=== PATIENT | female | born 1960 | race Two or more races ===

== ENCOUNTER 2016-10-10 00:59 | Emergency (ER) | payer OTHER ==
[2016-10-10 01:05] VITALS: BP 172/84; PULSE 97; RESP 18; TEMP 98.2; O2SAT 95
--- NOTE | 2016-10-10 01:10 | EDPHY ---
H & P Stated Complaint: Sore throat, productive cough x3 days HPI/ROS: HPI CHIEF COMPLAINT: Sore throat, cough HISTORY OF PRESENT ILLNESS: This patient very pleasant 55-year-old female significant past medical history for hypertension, breast CA status post bilateral mastectomy and reconstruction, presents to the emergency room at 1:15 a.m. in the morning with 3-4 days of progressively worsening sore throat and cough. Chills at home. Subjective fever. Denies chest pain, shortness of breath, pleuritic pain, hemoptysis, abdominal pain or back pain. Her main complaint is sore throat and cough with sputum production that she describes is whitish yellow. Past Medical History:Hypertension, breast CA Past Surgical History: Bilateral mastectomy, reconstruction Social History: denies daily use of drugs alcohol tobacco products works here at the hospital [employer] Family History: Noncontributory ROS REVIEW OF SYSTEMS: A comprehensive 10 point review of systems is otherwise negative aside from elements mentioned in the history of present illness. Exam Constitutional appears well nontoxic triage nursing summary reviewed, vital signs reviewed, awake/alert. Eyes normal conjunctivae and sclera, EOMI, PERRLA. HENT posterior pharynx erythematous, uvula midline, tonsillar bed mildly swollen 2+, no signs of MILLWORK ESTIMATOR RPA, no signs of Dillan's, normal inspection, atraumatic, moist mucus membranes, no epistaxis, neck supple/ no meningismus, no raccoon eyes. Respiratory bronchitic sounding cough, clear to auscultation bilaterally, normal breath sounds, no respiratory distress, no wheezing. Cardiovascular rate normal, regular rhythm, no murmur, no edema, distal pulses normal. Gastrointestinal soft, non-tender, no rebound, no guarding, normal bowel sounds, no distension, no pulsatile mass. Genitourinary no CVA tenderness. Musculoskeletal no midline vertebral tenderness, full range of motion, no calf swelling, no tenderness of extremities, no meningismus, good pulses, neurovascularly intact. Skin pink, warm, & dry, no rash, skin atraumatic. Neurologic awake, alert and oriented x 3, AAOx3, moves all 4 extremities equally, motor intact, sensory intact, CN II-XII intact, normal cerebellar, normal vision, normal speech. Psychiatric normal mood/affect. Heme/Lymph/Immune no lymphadenopathy. Differential Diagnosis: includes but is not limited to in a particular order, upper respiratory tract infection, bronchitis, viral syndrome, strep pharyngitis , pharyngitis viral, viral pneumonia, bacterial pneumonia Medical Decision Making: Plan for this patient rapid strep. However I will place her on azithromycin, guaifenesin, ibuprofen, albuterol, prednisone as she does have a bronchitic sounding cough. Re-evaluation: Patient appears well nontoxic. Start 1st dose of azithromycin here albuterol and prednisone. She understands return emergency room if she has any worsening symptoms questions or concerns. Vital signs reviewed. She does work here. She is agree with discharge planning. Source: Patient - Personal History Current Tetanus/Diphtheria Vaccine: Yes Current Tetanus Diphtheria and Acellular Pertussis (TDAP): Yes Tetanus Vaccine Date: 2012 - Medical/Surgical History Hx Asthma: No Hx Chronic Respiratory Disease: No Hx Diabetes: No Hx Cardiac Disease: No Hx Renal Disease: No Hx Cirrhosis: No Hx Alcoholism: No Hx HIV/AIDS: No Hx Splenectomy or Spleen Trauma: No Other PMH: HTN, hx breast cancer, bilat mastectomy with bilat implants. - Social History Smoking Status: Never smoked Constitutional: Initial Vital Signs Temperature (C) 36.8 C 10/10/16 01:02 Heart Rate 97 10/10/16 01:02 Respiratory Rate 18 10/10/16 01:02 Blood Pressure 172/84 H 10/10/16 01:02 O2 Sat (%) 95 10/10/16 01:02 O2 Delivery Mode Room Air Allergies/Adverse Reactions: Penicillins Allergy (Verified 11/11/14 09:51) Home Medications: Medication Instructions Recorded Hydrochlorothiazide [HCTZ (*)] 25 mg PO DAILY 01/06/12 Benazepril HCl [Lotensin (*)] 10 mg PO DAILY 11/11/14 Tamoxifen Citrate [Nolvadex 10 MG 20 mg PO DAILY 11/11/14 (*)] Zolpidem Tartrate [Ambien 5MG (*)] 5 mg PO HS PRN 11/11/14 Ibuprofen [Motrin (*)] 400 mg PO Q8 PRN #0 tab 11/12/14 Clindamycin 300 mg PO Q8 #60 cap 11/28/15 AZITHROMYCIN [Z-PACK] 250 mg PO DAILY #6 tab 10/10/16 Guaifenesin [Guaifenesin ER] 600 mg PO BID #14 tab.er.12h 10/10/16 predniSONE 60 mg PO DAILY #15 tab 10/10/16 Medical Decision Making - Data Points Laboratory Results: 10/10/16 01:10 Group A Strep Screen Pending Departure - Departure Disposition: Home, Routine, Self-Care Clinical Impression: Viral syndrome Upper respiratory infection Qualifiers: URI type: unspecified viral URI Qualified Code(s): J06.9 - Acute upper respiratory infection, unspecified; B97.89 - Other viral agents as the cause of diseases classified elsewhere Condition: Good Instructions: Viral Syndrome (ED), Acute Bronchitis (ED) [facility]errals: [facility] [Other] - As per Instructions Prescriptions: AZITHROMYCIN [Z-PACK] 250 mg PO DAILY #6 tab Guaifenesin [Guaifenesin ER] 600 mg PO BID #14 tab.er.12h predniSONE 60 mg PO DAILY #15 tab
[2016-10-10] MEDS ORDERED: ALBUTEROL INH PREPACK MDI TAKEHOME ONE (01:23)
[2016-10-10] MEDS ORDERED: AZITHROMYCIN 250 MG TAB PO ONE (01:23)
[2016-10-10] MEDS ORDERED: predniSONE 20 MG TAB PO ONE (01:23)
== END 2016-10-10 01:36 | disposition home or self-care (01) ==
DX: J06.9 Acute upper respiratory infection, unspecified (principal); B34.9 Viral infection, unspecified; I10 Essential (primary) hypertension; Z85.3 Personal history of malignant neoplasm of breast

== ENCOUNTER 2016-11-11 10:10 | Emergency (ER) | payer OTHER ==
--- NOTE | 2016-11-11 12:15 | EDPHY ---
H & P Time Seen by Provider: 11/11/16 10:20 HPI/ROS: HPI: 55-year-old female presents to emergency department with chief concern chemical splashed in her eyes. Occurred just prior to arrival when she was working at the [employer] at [employer] [facility] [employer], and splashed Virex II 256 venetian blind cleaner in her eyes that contains Didectyl ammonium chloride, and n-alkyl dimethyl benzyl ammonium chloride. Reports burning in her eyes. She rinsed at the eye wash station times 15 minutes prior to arrival. Denies fever, dizziness , visual changes, discharge from her eyes, headache, nausea vomiting. Does not wear contacts. ROS:10 point review of systems is negative other than as stated in HPI Smoking Status: Never smoked Physical Exam: General: Awake, alert, calm, cooperative. No acute distress. Head: Normalocephalic. Atraumatic. EENT: PERRLA. EOMI. Bilateral conjunctival injection, worse on the left. Pupils:[equal round and reactive to light] [EOMI] Lids: [no edema or swelling] Skin: [no proptosis, no periorbital erythema, rash or swelling, no vesicles] Conjunctivae: [conjunctival injection, worse on the left. No discharge.] Cornea: [exam with slit lamp and fluorescein shows no uptake, no abrasions, no ulcers.] Anterior chamber:[normal, no hyphema or hypopyon] Neck: Supple, nontender. No lymphadenopathy. Full range of motion. Neuro: Alert. Oriented x 3. Speech clear. Skin: Skin warm, dry, intact. No rashes. Skin turgor normal. Extremities: Full range of motion in all 4 extremities. Mental status: Interactive, appropriate, well-groomed. Constitutional: Initial Vital Signs Temperature (C) 36.6 C 11/11/16 10:14 Heart Rate 82 11/11/16 10:14 Respiratory Rate 17 11/11/16 10:14 Blood Pressure 160/79 H 11/11/16 10:14 O2 Sat (%) 95 11/11/16 10:14 O2 Delivery Mode Room Air Allergies/Adverse Reactions: Penicillins Allergy (Verified 11/11/16 10:12) Home Medications: Medication Instructions Recorded Hydrochlorothiazide [HCTZ (*)] 25 mg PO DAILY 01/06/12 Benazepril HCl [Lotensin (*)] 10 mg PO DAILY 11/11/14 Tamoxifen Citrate [Nolvadex 10 MG 20 mg PO DAILY 11/11/14 (*)] Zolpidem Tartrate [Ambien 5MG (*)] 5 mg PO HS PRN 11/11/14 Ibuprofen [Motrin (*)] 400 mg PO Q8 PRN #0 tab 11/12/14 Guaifenesin [Guaifenesin ER] 600 mg PO BID #14 tab.er.12h 10/10/16 predniSONE 60 mg PO DAILY #15 tab 10/10/16 Tobramycin/Dexameth [Tobradex opht 2 drops EACHEYE Q6 #1 opht.btl 11/11/16 drops (*)] Medical Decision Making ED Course/Re-evaluation: 55-year-old female presents to ED with chemical splash to the size at work today at [employer]. Rinsed her eyes for 15 minutes at eye wash station prior to arrival to ED. Upon arrival to ED, pH of her eyes bilaterally 8. Eyes rinsed for another 15 minutes at eye wash station. PH bilateral eyes remained 8 so eyes rinsed for another 15 minutes at eye wash station. Afterwards, pH of the left eye 7.5, pH of the right eye 7.0. Slit lamp exam negative for uptake or evidence of abrasion or ulcer. Consulted Dr. Nelson of Ophthalmology. Patient started on TobraDex steroid drops 4 times a day, and will follow up in the office with Ophthalmology tomorrow. Has been counseled to return promptly to ED for worsening symptoms including visual changes or discomfort. Differential Diagnosis: Differential diagnosis includes but is not limited to chemical burn, abrasion, ulceration Departure - Departure Disposition: Home, Routine, Self-Care Clinical Impression: Chemical injury of eye Qualifiers: Encounter type: initial encounter Laterality: unspecified laterality Qualified Code(s): T26.40XA - Burn of unspecified eye and adnexa, part unspecified, initial encounter Condition: Good Instructions: Chemical Eye Riley (ED) Additional Instructions: Plan: Plan: TobraDex eyedrops 2 drops each eye 4 times daily TobraDex gotas para los ojos, poner 2 gotas en cada denny 4 veces por khai. Follow up with Dr. Red Nelson of Ophthalmology tomorrow for recheck without fail--When you call to schedule appointment, please let the office know you are an "ER follow up" appointment" Staci de seguimiento con el Dr. Red Nelson de opthamologia manana para otro chequeo sin falta. Cuando llames a programar la staci, dejarles saber que tu eres un paciente que necesita staci despues de taina sido paciente en la rafael de Emergencia. Referrals: [facility] [Other] - As per Instructions Red Nelson MD [Medical Doctor] - As per Instructions Stand Alone Forms: Work Excuse Prescriptions: Tobramycin/Dexameth [Tobradex opht drops (*)] 2 drops EACHEYE Q6 #1 opht.btl
[2016-11-11 12:20] VITALS: BP 117/76; PULSE 81; RESP 15; TEMP 98.2; O2SAT 96
== END 2016-11-11 12:42 | disposition home or self-care (01) ==
DX: T54.3X1A Toxic effect of corrosive alkalis and alkali-like substances, accidental (unintentional), initial encounter (principal); T26.92XA Corrosion of left eye and adnexa, part unspecified, initial encounter; X58.XXXA Exposure to other specified factors, initial encounter

== ENCOUNTER 2017-08-08 01:27 | Emergency (ER) | payer OTHER ==
[2017-08-08 01:42] VITALS: RESP 16
[2017-08-08] MEDS ORDERED: CLINDAMYCIN 150MG PREPACK#6 BTL TAKEHOME ONE (01:49)
[2017-08-08] MEDS ORDERED: HYDROCOD/APAP 5/325 PREPACK#6 BTL TAKEHOME ONE (01:52)
--- NOTE | 2017-08-08 01:52 | EDPHY ---
H & P Time Seen by Provider: 08/08/17 01:33 HPI/ROS: CC: tooth pain HPI: This 56-year-old female presents emergency department today with pain in her right lower molar for the last 3 days. She has had dental problems in the past. She knew that this tooth needed dental attention but she just has not had the time. She does have a dentist in [place]. She rates the pain at a 4 /10 and throbbing. No relief with ibuprofen. She denies swelling, difficulty swallowing or breathing. She has not had a fever. She has a past medical history of breast cancer and hypertension. She states she has not taken her blood pressure medication for the last 3 days because she does not think she needs to take it all the time. No other concerns this evening. REVIEW OF SYSTEMS: Constitutional: No fever, no chills. Eyes: No discharge. ENT: No sore throat. Respiratory: No cough, no shortness of breath. Cardiac: No chest pain, no palpitations. Gastrointestinal: No abdominal pain, no vomiting. Genitourinary: No hematuria. Musculoskeletal: No back pain. Skin: No rashes. Neurological: No headache. Past Medical/Surgical History: Past medical history includes breast cancer, hypertension, and dental caries Past surgical history includes bilateral mastectomy and hysterectomy Family history significant for mother having breast cancer Allergies include penicillin which causes a rash and itching Medications include ibuprofen. She has not taken her losartan for 3 days. Social History: The patient denies tobacco use, alcohol use or marijuana use. Her primary care provider is [facility]. Her dentist is [facility] in [place]. Smoking Status: Never smoked Physical Exam: General Appearance: Alert, mod distress. Eyes: Pupils equal and round no pallor or injection. ENT, Mouth: Mucous membranes are moist. The right lower molar is fractured but this does not appear acute. Mild gingival erythema. No significant swelling around the tooth. no fluctuance. Uvula midline. Respiratory: There are no retractions, lungs are clear to auscultation. Cardiovascular: Regular rate and rhythm. Gastrointestinal: Abdomen is soft and nontender, no masses, bowel sounds normal. Neurological: Awake and alert, sensory and motor exams grossly normal. Skin: Warm and dry, no rashes. Musculoskeletal: Neck is supple nontender. Extremities are symmetrical, full range of motion. Psychiatric: Patient is oriented X 3, there is no agitation. DIFFERENTIAL DIAGNOSIS: After history and physical exam differential diagnosis was considered for but not limited to: [Dental caries, dental infection, fractured tooth, no signs of Dillan's angina] Constitutional: Initial Vital Signs Temperature (C) 97.7 F 08/08/17 01:39 Heart Rate 83 08/08/17 01:39 Respiratory Rate 16 08/08/17 01:39 Blood Pressure 208/85 H 08/08/17 01:39 O2 Sat (%) 98 08/08/17 01:39 O2 Delivery Mode Room Air Allergies/Adverse Reactions: Penicillins Allergy (Verified 08/08/17 01:37) Home Medications: Medication Instructions Recorded Clindamycin 150 mg PO QID 7 Days #28 cap 08/08/17 Medical Decision Making ED Course/Re-evaluation: Patient was seen and examined. Vital signs reviewed. Her blood pressure was elevated but this did come down prior to discharge. She was advised to take her blood pressure medication when she got home tonight and continue to take it daily as directed. She was given clindamycin 150 mg p.o.. An inferior alveolar dental block was performed using 3 cc of 1% lidocaine with epinephrine. Patient tolerated this well. She was given a take-home pack of clindamycin and hydrocodone. She was given a prescription for 7 day course of clindamycin 150 mg p.o. four times daily. She will follow up with her dentist in the next 1-2 days and will return to the emergency room if symptoms change or worsen as discussed specifically if she has facial swelling or swelling under her tongue, or difficulty swallowing or breathing. - Data Points Medications Given: Discontinued Medications Hydrocodone Bitart/Acetaminophen ([place] 5/325mg Prepack#6) 1 btl TAKEHOME EDNOW ONE Stop: 08/08/17 01:53 Last Admin: 08/08/17 02:02 Dose: 1 btl Clindamycin (Cleocin 150 Mg Prepack#6) 1 btl TAKEHOME EDNOW ONE PRN Reason: Protocol Stop: 08/08/17 01:50 Last Admin: 08/08/17 02:01 Dose: 1 btl Lidocaine (Lidocaine 2% Viscous) 5 ml PO EDNOW ONE Stop: 08/08/17 02:18 Last Admin: 08/08/17 02:19 Dose: 5 ml Departure - Departure Disposition: Home, Routine, Self-Care Clinical Impression: Pain due to dental caries Condition: Good Instructions: Clindamycin (By mouth), Hydrocodone/Acetaminophen (By mouth), Toothache (ED) Additional Instructions: Call first thing in the morning to get a dental appointment tomorrow or Tuesday. You say you have a dentist at [facility] in [place]. [facility] in [place], [place] Located in: [facility] Address: [id number] [place] [address] [address], [place] [address] Hours: Opens 7:30AM Dental Aide [phone] Return to the ER if swelling (especially under the tongue), trouble swallowing or any other concerns. You need to take your blood pressure medication as prescribed. Follow up with your primary care provider for a blood pressure recheck this week or next week without fail. Referrals: [facility] [Clinic] - As per Instructions Stand Alone Forms: Work Excuse Prescriptions: Clindamycin 150 mg PO QID 7 Days #28 cap Print Language: French
[2017-08-08] MEDS ORDERED: LIDOCAINE 2% VISCOUS 15 ML UDCUP PO ONE (02:17)
[2017-08-08 02:44] VITALS: BP 174/86; PULSE 84; TEMP 97.9; O2SAT 97
== END 2017-08-08 02:44 | disposition home or self-care (01) ==
LOC: CED 01:27
PROC: 3E0X3BZ Introduction of Anesthetic Agent into Cranial Nerves, Percutaneous Approach (ICD-10-PCS; principal; 2017-08-08)
DX: K02.9 Dental caries, unspecified (principal); I10 Essential (primary) hypertension; Z85.3 Personal history of malignant neoplasm of breast; Z88.0 Allergy status to penicillin

== ENCOUNTER 2018-03-30 09:45 | Observation (INO) | payer OTHER ==
[2018-03-30] MEDS ORDERED: ASPIRIN 81 MG CHEWABLE TAB PO ONE (09:52)
--- NOTE | 2018-03-30 09:52 | EDPHY ---
HPI/HX/ROS/PE/MDM Narrative: CHIEF COMPLAINT: Chest pain HISTORY OF PRESENT ILLNESS: The patient is a 57 y/o female with a history of diabetes, hypercholesteremia, hypertension and breast cancer complaining of non-radiating, deep, left-sided chest pain onset at 08:00, 2 hours ago. The pain initially started while she was at work here in the emergency department. In addition to her chest pain she feels mildly dizzy. Taking a deep breath increases her chest pain. She has had similar pain in the past, but this pain lasted for a short period of time. She did take her medications as prescribed this morning. No fever, chills, shortness of breath, palpitations, vomiting, diarrhea, urinary complaints, headache, lightheadedness. REVIEW OF SYSTEMS: Aside from elements discussed in the HPI, a comprehensive 10-system review of systems was reviewed and is negative. PAST MEDICAL HISTORY: Diabetes, hypercholesteremia, hypertension, breast cancer (6 years ago, in remission but on oral chemotherapy) SOCIAL HISTORY: Employed at [employer], lives in [place], , denies illicit drug use, smoking tobacco, or drinking. Patient speaks both Arabic and Puerto Rican. insurance adviser was used for several interactions at the patient's request. is primarily Puerto Rican speaking. Warp Scouring Vat Tender was used for all interactions. VITAL SIGNS: Reviewed by me GENERAL: Well-developed, well-nourished, resting comfortably in no respiratory distress. HEENT: Atraumatic. Eyes: No icterus, no injection. Mouth: moist mucous membranes. No erythema or lesions. Neck: supple with no adenopathy. LUNGS: Clear to auscultation bilaterally, no wheezes, rhonchi or rales. CHEST WALL: S/P double mastectomy with bilateral breast implants, left breast has faint patchy erythema (normal per patient), no warmth or tenderness on the breasts. No specific areas of tenderness. No crepitus. CARDIAC: Regular rate and rhythm, no rubs, murmurs or gallops. ABDOMEN: Soft, nontender, nondistended, bowel sounds normal. BACK: No CVA tenderness. EXTREMITIES: No trauma. No edema. Range of motion is normal throughout. NEURO: Alert and oriented, grossly nonfocal. SKIN: Warm and dry, no rash. PSYCHIATRIC: Normal mentation, no agitation. Portions of this note were transcribed by a medical scientist. I personally performed a history, physical exam, medical decision making, and confirmed accuracy of information the transcribed note. ED Course: The patient is a 57 y/o female with a history of diabetes, hypercholesteremia, hypertension and breast cancer presenting with non-radiating left-sided chest pain onset at 08:00, 2 hours ago. On exam she is S/P double mastectomy with bilateral breast implants. The left breast has faint patchy erythema which is normal per the patient. There is no warmth or tenderness. Patient indicates pain is deep in the left breast area. She thinks it is more in the chest than in the breast itself. Labs, chest x-ray, and EKG ordered; 324mg PO Aspirin administered. 0950: 12-LEAD EKG: Please see the full report in Trace Master. My interpretation: Sinus rhythm with a rate of 95, prolonged QT interval, and minimal ST depression. 1010: Reassessed patient, she reports that her pain has improved after the Aspirin. 1056: Reassessed patient, she is still having the non-radiating chest pain; 4mg IV Morphine and 15mg IV Toradol administered. I have discussed the negative laboratory and imaging findings. I have also discussed the abnormal EKG in combination with her risk factors. I have discussed the plan for admission for a stress test and further observation; she is comfortable with this plan. 1107: I consulted with the hospitalist service, Dr. Hinkle accepts admission of this patient for further workup and evaluation. Repeat EKG ordered. 1217: 12-LEAD EKG: Please see the full report in Trace Master. My interpretation: Sinus rhythm with a rate of 77, borderline left axis deviation. ST depression previously noted has resolved. Patient is okay to be transferred to the floor. MDM: After history and physical examination, the differential for chest pain was considered, including but not limited to, myocardial ischemia, acute coronary syndrome, pulmonary embolus, chest wall pain, pleural inflammation and pulmonary infectious causes. - Data Points Imaging Results: CXR: Impression: No acute abnormality. Dictated By: Richie Helms MD Imaging: I viewed and interpreted images myself Laboratory Results: Laboratory Results 03/30/18 09:50 03/30/18 09:50 Medications Given: Discontinued Medications Aspirin (Aspirin) 324 mg PO EDNOW ONE Stop: 03/30/18 09:53 Last Admin: 03/30/18 09:59 Dose: 324 mg Benazepril HCl (Lotensin) 20 mg PO ONCE ONE Stop: 03/30/18 18:52 Last Admin: 03/30/18 20:10 Dose: 20 mg Ketorolac Tromethamine (Toradol) 15 mg IVP EDNOW ONE Stop: 03/30/18 11:10 Last Admin: 03/30/18 11:20 Dose: 15 mg Metformin HCl (Glucophage) 500 mg PO BIDMEAL SYDNIE Stop: 09/26/18 17:59 Last Admin: 03/30/18 18:32 Dose: 500 mg Morphine Sulfate (Morphine) 4 mg IVP EDNOW ONE Stop: 03/30/18 11:05 Last Admin: 03/30/18 12:22 Dose: Not Given Point of Care Test Results: Chemistry 03/30/18 09:57 POC Troponin I 0.00 ng/mL ng/mL (0.00-0.08) General Time Seen by Provider: 03/30/18 09:51 Initial Vital Signs: Initial Vital Signs Heart Rate 96 03/30/18 09:46 Respiratory Rate 18 03/30/18 09:46 Blood Pressure 188/97 H 03/30/18 09:46 O2 Sat (%) 98 03/30/18 09:46 O2 (L/minute) 36.7 Allergies/Adverse Reactions: Penicillins Allergy (Verified 03/30/18 11:35) Rash Home Medications: Medication Instructions Recorded Acetaminophen [Tylenol 325mg (*)] 650 mg PO Q4HRS PRN tab 03/30/18 Aspirin EC [Aspirin EC 81 mg (*)] 81 mg PO DAILY #30 tab 03/30/18 Atorvastatin Calcium [Lipitor 40 40 mg PO HS 03/30/18 mg (*)] Benazepril HCl 40 mg PO DAILY #30 tablet 03/30/18 Ibuprofen [Motrin (*)] 800 mg PO Q8HRS PRN tab 03/30/18 Tamoxifen Citrate 20 mg PO HS 03/30/18 amLODIPine BESYLATE [Norvasc 5 mg 5 mg PO DAILY 03/30/18 (*)] metFORMIN HCL [Glucophage 500 mg 500 mg PO BIDMEAL 03/30/18 (*)] Departure - Departure Disposition: [facility] Clinical Impression: Abnormal EKG Chest pain Qualifiers: Chest pain type: other chest pain Qualified Code(s): R07.89 - Other chest pain Condition: Good Report Scribed for: Bushra Vences Report Scribed by: Oliva Long Date of Report: 03/30/18 Time of Report: 09:52
[2018-03-30] MEDS ORDERED: ASPIRIN 81 MG CHEWABLE TAB ONE (09:58)
[2018-03-30 10:20] LABS: PLATELET COUNT 229 10^3/uL (150-400)
[2018-03-30] MEDS ORDERED: KETOROLAC 15 MG/1 ML SDV IVP ONE (11:09)
[2018-03-30] MEDS ORDERED: ONDANSETRON DISINTEGRATING 4 MG TAB PO PRN (12:24)
[2018-03-30] MEDS ORDERED: ACETAMINOPHEN 325 MG TAB PO PRN (12:24)
[2018-03-30] MEDS ORDERED: ONDANSETRON 4 MG/2 ML VIAL IVP PRN (12:24)
[2018-03-30] MEDS ORDERED: IBUPROFEN 800 MG TAB PO PRN (12:55)
--- NOTE | 2018-03-30 13:01 | PDGENHP ---
History and Physical - Chief Complaint Acute chest pain - History of Present Illness Primary care provider: [facility] Primary specialist field engineer: Dr. Micah Ghosh Primary oncologist: Dr. Zhang Alas HPI: 57-year-old female presents with acute chest pain located on the left side , characterized as deep and nonradiating with onset of symptoms at 8:00 a.m. And duration of symptoms approximately 4.5 hr thereafter. It is associated with some dizziness, and was exacerbated by deep inspiration. The pain was alleviated with IV Toradol. The patient reports that the symptoms occurred in the context of routine work, without any notable physical exertion. She does endorse that her work environment is particularly stressful and she was experiencing a significant amount of stress during her onset. She does endorse on the evening prior to presentation, she did have 1 episode of vomiting followed by some subsequent nausea, which is unusual for her. She also endorses that she began experiencing a sore throat and some eye irritation on the morning of presentation. She reports other family members are sick with cold and or flu-like symptoms at home. She endorses that she walks approximately 45 min on a regular basis, and has not recently experienced any exertional chest pain or reduction exercise tolerance. History Information - Allergies/Home Medication List Allergies/Adverse Reactions: Penicillins Allergy (Verified 03/30/18 11:35) Rash Home Medications: Atorvastatin Calcium [Lipitor 40 mg (*)] 40 mg PO HS 03/30/18 [Last Taken ] Benazepril HCl [Lotensin (*)] 20 mg PO DAILY 03/30/18 [Last Taken 03/30/18] Tamoxifen Citrate 20 mg PO HS 03/30/18 [Last Taken 03/29/18] amLODIPine BESYLATE [Norvasc 5 mg (*)] 5 mg PO DAILY 03/30/18 [Last Taken ] metFORMIN HCL [Glucophage 500 mg (*)] 500 mg PO BIDMEAL 03/30/18 [Last Taken 10/12] I have personally reviewed and updated: family history, medical history, social history, surgical history - Past Medical History diabetes type 2, hypertension, hyperlipidemia Additional medical history: ER/OK positive, her-2-, infiltrating ductal carcinoma status post chemotherapy and radiation therapy - Surgical History Additional surgical history: Mastectomy - Family History Negative for: CAD - Social History Smoking Status: Never smoked Alcohol Use: None Drug Use: None Additional social history: Works in a fairly physically demanding job comma exercises 45 min with walking on a regular basis Review of Systems Review of Systems: ROS: 10pt was reviewed & negative except for what was stated in HPI & below Cardiac: Reports: chest pain, other (Dizziness) Gastrointestinal: Reports: vomitting, nausea Physical Exam Physical Exam: Temp Pulse Resp BP Pulse Ox 37.0 C 80 12 156/96 H 97 03/30/18 12:41 03/30/18 12:41 03/30/18 12:41 03/30/18 12:41 03/30/18 12:41 Constitutional: no apparent distress, appears nourished, not in pain, No uncomfortable Eyes: PERRL, anicteric sclera, EOMI Ears, Nose, Mouth, Throat: moist mucous membranes, hearing normal, ears appear normal, no oral mucosal ulcers Cardiovascular: regular rate and rhythym, no murmur, rub, or gallop, No edema Respiratory: no respiratory distress, no rales or rhonchi, clear to auscultation Gastrointestinal: normoactive bowel sounds, soft, non-tender abdomen, no palpable masses Neurologic: AAOx3, No facial droop Psychiatric: interacting appropriately, not anxious, not encephalopathic, thought process linear Lymph, Heme, Immunologic: no cervical LAD, no supraclavicular LAD, other ( Normal appearing tonsils without exudate) Lab Data & Imaging Review 03/30/18 09:50 03/30/18 09:50 WBC 7.87 10^3/uL (3.80-9.50) 03/30/18 09:50 RBC 4.87 10^6/uL (4.18-5.33) 03/30/18 09:50 Hgb 15.3 g/dL (12.6-16.3) 03/30/18 09:50 Hct 43.5 % (38.0-47.0) 03/30/18 09:50 MCV 89.3 fL (81.5-99.8) 03/30/18 09:50 MCH 31.4 pg (27.9-34.1) 03/30/18 09:50 MCHC 35.2 g/dL (32.4-36.7) 03/30/18 09:50 RDW 12.3 % (11.5-15.2) 03/30/18 09:50 Plt Count 229 10^3/uL (150-400) 03/30/18 09:50 MPV 9.8 fL (8.7-11.7) 03/30/18 09:50 Neut % (Auto) 63.9 % (39.3-74.2) 03/30/18 09:50 Lymph % (Auto) 29.9 % (15.0-45.0) 03/30/18 09:50 [place] % (Auto) 4.4 % (4.5-13.0) L 03/30/18 09:50 Eos % (Auto) 1.0 % (0.6-7.6) 03/30/18 09:50 Baso % (Auto) 0.5 % (0.3-1.7) 03/30/18 09:50 Nucleat RBC Rel Count 0.0 % (0.0-0.2) 03/30/18 09:50 Absolute Neuts (auto) 5.03 10^3/uL (1.70-6.50) 03/30/18 09:50 Absolute Lymphs (auto) 2.35 10^3/uL (1.00-3.00) 03/30/18 09:50 Absolute Monos (auto) 0.35 10^3/uL (0.30-0.80) 03/30/18 09:50 Absolute Eos (auto) 0.08 10^3/uL (0.03-0.40) 03/30/18 09:50 Absolute Basos (auto) 0.04 10^3/uL (0.02-0.10) 03/30/18 09:50 Absolute Nucleated RBC 0.00 10^3/uL (0-0.01) 03/30/18 09:50 Immature Gran % 0.3 % (0.0-1.1) 03/30/18 09:50 Immature Gran # 0.02 10^3/uL (0.00-0.10) 03/30/18 09:50 D-Dimer 0.48 ug/mLFEU (0.00-0.50) 03/30/18 09:50 Sodium 143 mEq/L (135-145) 03/30/18 09:50 Potassium 3.5 mEq/L (3.3-5.0) 03/30/18 09:50 Chloride 102 mEq/L (97-110) 03/30/18 09:50 Carbon Dioxide 27 mEq/l (22-31) 03/30/18 09:50 Anion Gap 14 mEq/L (8-16) 03/30/18 09:50 BUN 17 mg/dL (7-23) 03/30/18 09:50 Creatinine 0.6 mg/dL (0.6-1.0) 03/30/18 09:50 Estimated GFR > 60 03/30/18 09:50 Glucose 130 mg/dL (70-100) H 03/30/18 09:50 Calcium 10.5 mg/dL (8.5-10.4) H 03/30/18 09:50 POC Troponin I 0.00 ng/mL (0.00-0.08) 03/30/18 09:57 Visualized and Interpreted Chest x-ray results: Yes Chest X-Ray results: no infiltrate Visualized and Interpreted EKG results: Yes EKG Interpretation: Positive for: other (Normal sinus rhythm with T-wave inversion in lead V1 and V2) Assessment & Plan Assessment: 57-year-old female presents with acute chest pain Plan: 1. Chest pain. Acute, new problem this provider, further workup indicated. Patient has a heart score of 3, conferring low risk for a coronary event, with a story more suggestive of pleuritis from likely viral precipitant given her symptoms on the evening prior to presentation as well as those on the morning of presentation which sound infectious in nature -pulmonary embolism ruled out with negative D-dimer -will check respiratory viral panel -will repeat troponin level 4 hr after discontinuation of symptoms -will monitor on telemetry -reviewed outside records including 11/12/[address] Bowen byrnes reporting normal nuclear stress test, normal CT angiogram, pain felt to be potentially subcutaneous in secondary to breast implants a but not secondary to cardiopulmonary causes -I reviewed patient's most recent EKG which is 02/01/2018 as well as that in 2014 , and the patient had these T-wave inversions in V1 and V2 at that time, indicating no acute changes on her present EKG from prior -if the patient's troponin level above is unremarkable and she has no recurrence of her symptoms, I have advised the patient that she may be safely discharged as she is low risk from a cardiac standpoint, and she should subsequently follow up with Dr. Micah Ghosh for optimal primary CAD prevention -if the troponin level is positive, will consult with Cardiology or she experiences recurrence of symptoms, will repeat cardiac enzyme later this evening as well as tomorrow morning and consider nuclear treadmill stress test at that time 2. Hypertension. Acutely exacerbated secondary to discomfort, patient took her home medications, her blood pressure has improved with resolution of symptoms, continue home medications 3. Diabetes mellitus type 2. Continue metformin Diet. Regular Prophylaxis. Moderate risk patient, Lovenox 40 Code. Full Disposition. Anticipated discharge is 03/30 versus 03/31, dependent on above.
--- NOTE | 2018-03-30 16:12 | CPEKG ---
Test Reason : OPEN Blood Pressure : / mmHG Vent. Rate : 095 BPM Atrial Rate : 095 BPM P-R Int : 127 ms QRS Dur : 082 ms QT Int : 385 ms P-R-T Axes : 065 -19 -03 degrees QTc Int : 484 ms Sinus rhythm Borderline left axis deviation Nonspecific ST depression Confirmed by Bushra Vences ([id number]) on 03/30/2018 4:12:02 PM Referred By: Confirmed By:Bushra Vences
--- NOTE | 2018-03-30 16:13 | CPEKG ---
Test Reason : OPEN Blood Pressure : / mmHG Vent. Rate : 077 BPM Atrial Rate : 078 BPM P-R Int : 137 ms QRS Dur : 081 ms QT Int : 402 ms P-R-T Axes : 037 -15 058 degrees QTc Int : 455 ms Sinus rhythm Borderline left axis deviation Confirmed by Bushra Vences ([id number]) on 03/30/2018 4:13:19 PM Referred By: Confirmed By:Bushra Vences
[2018-03-30] MEDS ORDERED: metFORMIN HCL 500 MG TAB PO SCH (18:00)
[2018-03-30] MEDS ORDERED: BENAZEPRIL HCL 20 MG TAB PO ONE (18:51)
--- NOTE | 2018-03-30 19:06 | PDDCSUM ---
Discharge Summary Discharge Summary: DISCHARGE SUMMARY FOLLOW-UP ITEMS: Recheck blood pressure a primary care office DATE OF ADMISSION: 03/30/2018 DATE OF DISCHARGE: 03/30/2018 DISCHARGE DIAGNOSES: 1. Acute chest pain 2. Chronic hypertension CONSULTATIONS: None PROCEDURES / IMAGING: Chest x-ray clear CHIEF COMPLAINT: Acute chest pain SUBJECTIVE: Patient is feeling well at time discharge, she has not had any recurrence of her symptoms PHYSICAL EXAM ON DISCHARGE: Systolic blood pressures in the 150-160 range, pain levels currently 0/10 LABS ON DISCHARGE: Troponins negative x2 HOSPITAL COURSE BY PROBLEM: The patient presented with acute chest pain most likely secondary to either pleuritis from URI or symptomatic hypertension, with no evidence of acute coronary syndrome on EKG and with negative troponin x2. Her EKG on presentation was exactly the same as it was in January of this year as well as in 2014. She also had a negative D-dimer. Her heart score was 3, conferring low risk for subsequent OH. She had a normal stress test 3 years ago and was diagnosed as having atypical chest pain at that time, as well as hypertension requiring more aggressive management. I suspect that this presentation is also atypical chest pain and her hypertension also warrants additional medication titration. She received an additional 20 mg of benazepril prior to discharge, and I recommended that she increase her home dosage from 20 mg daily to 40 mg daily beginning tomorrow. I recommend that she follow up with her primary care office or Dr. Micah Ghosh for blood pressure recheck. I also recommended that she initiate a low-dose aspirin for primary CAD prevention. If the patient does have any subsequent recurrence of her symptoms, I recommend that she either follow-up at [facility] or re-presented to the emergency department if there escalating and evolving. DISCHARGE MEDICATIONS: Please see official discharge medication reconciliation sheet in chart , benazepril increased to 40 mg daily, added aspirin 81 mg daily, continue other home medications. DISCHARGE INSTRUCTIONS: Please follow up at either [facility] or Dr. Micah Ghosh.
[2018-03-30 20:13] VITALS: BP 153/80
[2018-03-30] MEDS ORDERED: ATORVASTATIN CALCIUM 40 MG TAB PO SCH (21:00)
[2018-03-30] MEDS ORDERED: TAMOXIFEN CITRATE 10 MG TAB PO SCH (21:00)
[2018-03-31] MEDS ORDERED: amLODIPine BESYLATE 5 MG TAB PO SCH (09:00)
[2018-03-31] MEDS ORDERED: BENAZEPRIL HCL 20 MG TAB PO SCH (09:00)
[2018-03-31] MEDS ORDERED: ENOXAPARIN 40 MG/0.4 ML SYR SC SCH (09:00)
== END 2018-03-30 20:30 | disposition home or self-care (01) ==
LOC: F2W 12:30
PROVIDERS: ADMIT Internal Medicine; ATTEND Internal Medicine
DX: R07.89 Other chest pain (principal); I10 Essential (primary) hypertension; E78.00 Pure hypercholesterolemia, unspecified; E11.9 Type 2 diabetes mellitus without complications; Z85.3 Personal history of malignant neoplasm of breast; Z79.84 Long term (current) use of oral hypoglycemic drugs
CPT/HCPCS: 71046; 93005; G0378; 84484-PO; 96374; J1885